=== PATIENT | male | born 1945 | race Caucasian/White ===

== ENCOUNTER 2016-12-16 14:55 | Emergency (ER) | payer MEDICARE ==
[~2016-12-16] VITALS: Ht 170.2 cm; Wt 91.0 kg
[2016-12-16] MEDS ORDERED: ENAL5TAB PO (15:11)
[2016-12-16] MEDS ORDERED: INSU3INS6 SQ (15:11)
[2016-12-16] MEDS ORDERED: ATOR40TA70 PO (15:11)
[2016-12-16] MEDS ORDERED: AMLO5TAB4 PO (15:11)
[2016-12-16] MEDS ORDERED: METF10002 PO (15:11)
[2016-12-16] MEDS ORDERED: BACITRACIN ZINC OINT UDPKT TOP ONE (17:15)
[2016-12-16] MEDS ORDERED: LIDOCAINE HCL 1%/EPI 1:200,000 30 ML VIAL MC ONE (18:30)
[2016-12-16 19:31] VITALS: BP 144/78
== END 2016-12-16 19:35 | disposition home or self-care (01) ==
LOC: ER 17:21
DX: S09.8XXA Other specified injuries of head, initial encounter (principal); S01.01XA Laceration without foreign body of scalp, initial encounter; I10 Essential (primary) hypertension; E11.9 Type 2 diabetes mellitus without complications; W10.0XXA Fall (on)(from) escalator, initial encounter; Y93.89 Activity, other specified; Y92.520 Airport as the place of occurrence of the external cause; Z79.4 Long term (current) use of insulin; Z86.73 Personal history of transient ischemic attack (TIA), and cerebral infarction without residual deficits
CPT/HCPCS: 12002; 70450; 99284